=== PATIENT | male | born 1990 | race Two or more races ===

== ENCOUNTER 2020-01-28 18:44 | Emergency (ER) | payer OTHER ==
[~2020-01-28] VITALS: Ht 175.3 cm; Wt 104.3 kg
[2020-01-28] MEDS ORDERED: ASPirin 81 mg TAB PO ONE (19:00)
[2020-01-28 19:11] LABS: Basophils # (auto) 0 10 ^3/uL (0-0.2); Basophils % (auto) 0.3 % (0.0-2.0); Eosinophils # (auto) 0 10 ^3/uL (0-0.8); Eosinophils % (auto) 0.3 % (0.0-7.0); Hematocrit 46.2 % (41.0-53.0); Hemoglobin 15.8 g/dL (13.5-17.5); Lymphocytes % (auto) 24.6 % (10.0-50.0); Mean Corpuscular Hemoglobin 30.1 pg (28.0-32.0); Mean Corpuscular Hgb Conc. 34.1 g/dL (32.0-36.0); Mean Corpuscular Volume 88.1 fL (80.0-100.0); Monocytes # (auto) 0.9 10 ^3/uL (0-1.3); Monocytes % (auto) 7.4 % (0.0-12.0); Neutrophils # (auto) 8.3 10 ^3/uL (1.6-8.6); Neutrophils % (auto) 67.4 % (37.0-80.0); Nucleated Red Blood Cells % 0.1 %; Platelet Count (auto) 248 10^3/uL (140-450); Red Blood Cells 5.25 10^6/uL (4.5-5.90); Red Cell Distribution Width 13.9 % (11.8-14.3); White Blood Cell 12.3 10^3/uL (4.4-10.8)
[2020-01-28 19:27] LABS: INR 1.01 (0.9-1.15); Partial Thromboplastin Time 26.1 sec (23.0-31.2)
[2020-01-28 19:42] LABS: Albumin 4.4 g/dL (3.4-5.0); Calcium 9.2 mg/dL (8.5-10.1); Magnesium 2.5 mg/dL (1.6-2.6)
[2020-01-28 19:46] LABS: BUN/Creatinine Ratio 17.7; Bilirubin, Total 0.5 mg/dL (0.2-1.0); Total Protein 8.3 g/dL (6.4-8.2)
[2020-01-29 01:00] VITALS: BP 117/77
== END 2020-01-29 02:11 | disposition home or self-care (01) ==
LOC: ER 18:44
DX: R79.89 Other specified abnormal findings of blood chemistry (principal)
CPT/HCPCS: 36415; 71045; 80053; 83735; 83880; 84484; 85025; 85610; 85730